=== PATIENT | female | born 1960 ===

== ENCOUNTER 2017-11-30 05:50 | Day surgery (SDC) | payer OTHER ==
[2017-11-29 09:54] VITALS: BMI 27.1
[2017-11-30 06:16] VITALS: O2SAT 96
[2017-11-30] MEDS ORDERED: Lidocaine 2% Inj (20ml) ONE (07:36)
[2017-11-30] MEDS ORDERED: Propofol 10 mg/ml Inj (20 ML) ONE (07:43)
[2017-11-30] MEDS ORDERED: Midazolam 2 MG/2 ML VIAL ONE (07:43)
[2017-11-30] MEDS: Bupivacaine HCl 0.5% PF (10 ml) Inj ONE ×2 (07:59→08:38)
[2017-11-30] MEDS: Lidocaine 2% Inj (20ml) ONE ×2 (08:00→08:39)
[2017-11-30] MEDS: MethylPREDNISolone Depo 40 mg/ml Inj ONE ×2 (08:00→08:38)
[2017-11-30] MEDS: Iohexol 240 (50 ml) ONE ×2 (08:00→08:39)
[2017-11-30] MEDS ORDERED: Lactated Ringer's 1,000 ML IV ONE (08:17)
[2017-11-30] MEDS: ceFAZolin IV 2 gm in Dextrose 2 GM/50 ML BAG IVPB ONE ×2 (08:18→09:15)
[2017-11-30] MEDS ORDERED: ceFAZolin IV 1 gm in Dextrose 1 GM/50 ML BAG IVPB STA (09:22)
[2017-11-30] MEDS ORDERED: ceFAZolin IV 2 gm in Dextrose 2 GM/50 ML BAG IVPB STA (09:26)
[2017-11-30 09:29] VITALS: BP 138/72; PULSE 57; RESP 16; TEMP 97.8
--- NOTE | 2017-11-30 14:30 | PCM.SURG1 ---
Surgeon's Initial Post Op Note - Surgeon's Notes Surgeon: Howie Santos MD Furnace Charger: None Type of Anesthesia: Local Pre-Operative Diagnosis: R hip #1 DJD. #2 synovitis Operative Findings: R hip #1 DJD. #2 synovitis Post-Operative Diagnosis: R hip #1 DJD. #2 synovitis Operation Performed: R hip injection under flouroscopic guidance intra-articular Specimen/Specimens Removed: specimen= none. complications= none. implants= none. injection= 5cc total, 2cc 2% lidocaine/2cc 0.5% marcaine/ 40mg depomedrol Estimated Blood Loss: EBL {In ML}: 0 Blood Products Given: N/A Drains Used: No Drains Post-Op Condition: Good Date of Surgery/Procedure: 11/30/17 Time of Surgery/Procedure: 08:00
--- NOTE | 2017-12-01 09:24 | RAD ---
PROCEDURE: Intraoperative Fluoroscopy. HISTORY: RT. HIP degenerative changes FINDINGS: Fluoroscopic assistance was provided for right hip joint injection.
== END 2017-11-30 10:00 | disposition home or self-care (01) ==
LOC: C.SDS 05:50
PROVIDERS: ATTEND Student in an Organized Health Care Education/Training Program
DX: M16.11 Unilateral primary osteoarthritis, right hip (principal); M65.88 Other synovitis and tenosynovitis, other site; E11.9 Type 2 diabetes mellitus without complications; Z79.84 Long term (current) use of oral hypoglycemic drugs
CPT/HCPCS: 20610; 82948; J0690; J1030; Q9966